=== PATIENT | male | born 1970 | race Caucasian/White ===

== ENCOUNTER 2016-04-24 21:03 | Inpatient (IN) | payer BC ==
[~2016-04-24] VITALS: Ht 175.3 cm; Wt 103.5 kg
[~2016-04-24 21:03] MED LIST: ASPI325T4; ATOR20TA17; CARV3.1238; VALS80TA2
[2016-04-24] MEDS ORDERED: ASPI81TA3 PO (23:58)
[2016-04-24] MEDS ORDERED: OLME1TAB37 PO (23:58)
[2016-04-25] VITALS (13 sets, daily range): BP systolic 101–148; BP diastolic 59–92; PULSE 73–117; RESP 16–20; Ht 175.3 cm; Wt 103.5 kg
[2016-04-25] MEDS ORDERED: ACETAMINOPHEN 325 MG TAB PO PRN (01:00)
[2016-04-25] MEDS ORDERED: DOCUSATE SODIUM 100 MG CAP PO PRN (01:00)
[2016-04-25] MEDS ORDERED: NACL 0.9% 3 ML SYG IV SCH (01:00)
[2016-04-25] MEDS ORDERED: ONDANSETRON 4 MG INJ IV PRN (01:00)
[2016-04-25] MEDS ORDERED: NITROGLYCERIN (SL) 0.4 MG TAB SL PRN (01:00)
[2016-04-25] MEDS ORDERED: morphine 2 MG INJ IV PRN (01:00)
[2016-04-25 01:15] LABS: CREATINE KINASE 126 IU/L (23-200)
[2016-04-25 01:16] LABS: CHOL/HDL RATIO 6.1 RATIO; MAGNESIUM 1.9 mg/dl (1.7-2.5)
[2016-04-25 01:40] LABS: TROPONIN-I < 0.012 ng/ml (0.00-0.12)
[2016-04-25 01:48] LABS: THYROID STIMULATING HORMONE 2.58 MIU/L (0.465-4.680)
--- NOTE | 2016-04-25 02:14 | HP ---
Date/Time of Note Date/Time of Note DATE: 04/25/16 TIME: 02:08 Assessment/Plan VTE Prophylaxis VTE Prophylaxis Intervention: heparin Lines/Catheters IV Catheter Type (from Nrsg): Saline Lock Assessment/Plan Assessment/Plan 45 yo male with a past medical history of hypertension, [place] s/p cath, who presents with chest pain. 1. Chest pain - ACS vs anxiety - will admit the patient to telemetry, consult cardiology, obtain 2D ECHO, aspirin/morphine/nitro/oxygen, continue with coreg/ statin, serial ekgs, TSH/Mag, cycle cardiac markers 2. [place] s/p angiogram - continue with current medications 3. Essential hypertension - on coreg, BP stable 4. GI ppx - protonix po 5. DVT ppx - heparin answered all of his questions. as per clinical course. this history and physical took greater then 45 minutes to complete HPI/ROS Admit Date/Time Admit Date/Time Apr 25, 2016 at 12:30 am Hx of Present Illness 45 yo male with a past medical history of hypertension, [place] s/p cath, who presents with chest pain. He states that over the last month he has had intermittent substernal chest pain, starting from his neck radiating down to his chest, associated with shortness of breath, lasting about 10 minutes at times, not relieved with any medications. The pain is like a burning/pressure sensation, 5/10 in nature, not like his previous acid reflux, but similar to his [place] symptoms 8 years ago. He had initially gone to [facility], but was transferred here to [facility] 05/04 to insurance purposes. He denies any loss of consciousness, headaches, urinary/bowel irregularities, fevers/chills or other constitutional symptoms. [facility]: Xray- no active cardiopulmonary disease Labs reviewed ROS 14 point review of systems completed, please refer to HPI for any positive findings PMH/Family/Social Past Medical History Medical History: coronary artery disease, hypertension Past Surgical History s/p angiogram Family History Significant Family History: heart disease (father had [place] age 69) Social History Alcohol Use: occasionally Smoking Status: Former smoker Drug Use: none Exam/Review of Systems Vital Signs Vitals Vital Signs Date Time Temp Pulse Resp B/P Pulse Ox O2 Delivery O2 Flow Rate FiO2 04/25/16 00:09 98.1 87 16 148/92 97 Exam Exam Gen Mateusz: NAD, AAOx4 HEENT: NC/AT, PERRLA, EOMI, no pharyngeal erythema, no tonsillar exudates, no lymphadenopathy, no JVD, no carotid bruits NECK: supple, no thyromegaly THORAX: symmetrical, no obvious deformities CV: S1S2, RRR, no M/G/R Lungs: CTAB no W/C/R/R Abd: soft, NT/ND, +BS, no rebound, no guarding, neg HSM EXT: no edema, no ecchymosis, no clubbing, FROM Neuro: CN II-XII grossly intact, no focal deficits Psych: good mentation, alert and oriented, good mood and affect Skin: C/D/I Medications Medications Current Medications Lorazepam (Ativan) 0.5 mg Q6H PRN IV ANXIETY; Start 04/25/16 at 01:00 Ondansetron HCl (Zofran Inj) 4 mg Q6H PRN IV NAUSEA AND/OR VOMITING; Start at 01:00 Nitroglycerin (Nitroglycerin (Sl Tab) 0.4 Mg) 1 tab Q5M PRN SL CHEST PAIN; Start 04/25/16 at 01:00 Acetaminophen (Tylenol Tab) 650 mg Q6H PRN PO PAIN LEVEL 1-3 OR FEVER; Start at 01:00 Morphine Sulfate (morphine) 2 mg Q4H PRN IV PAIN LEVEL 7-10; Start 04/25/16 at 01:00 Docusate Sodium (Colace) 100 mg Q12H PRN PO CONSTIPATION; Start 04/25/16 at 01: 00 Pantoprazole (Protonix Tab) 40 mg DAILY@06 PO ; Start 04/25/16 at 06:00 Enoxaparin Sodium (Lovenox) 40 mg DAILY SC ; Start 04/25/16 at 09:00 Aspirin (Aspirin) 81 mg DAILY PO ; Start 04/25/16 at 09:00 Atorvastatin Calcium (Lipitor) 20 mg QHS PO ; Start 04/25/16 at 21:00 Carvedilol (Coreg) 3.125 mg BID PO ; Start 04/25/16 at 09:00 Miscellaneous Information 0.25 tab DAILY PO ; Start 04/25/16 at 09:00; Status ANAM DIEGO MD Apr 25, 2016 02:14
[2016-04-25] MEDS: PANTOPRAZOLE (EC) 40 MG TAB PO SCH (06:01)
[2016-04-25] MEDS: ENOXAPARIN 40 MG/0.4 ML SYG SC SCH (09:00)
[2016-04-25] MEDS: ASPIRIN 81 MG TAB PO SCH (09:19)
[2016-04-25] MEDS ORDERED: [UNRECOGNIZED DRUG - REMARK] XX SCH (12:30)
--- NOTE | 2016-04-25 13:04 | PN ---
Date/Time of Note Date/Time of Note DATE: 04/25/16 TIME: 12:58 Assessment/Plan VTE Prophylaxis VTE Prophylaxis Intervention: heparin Lines/Catheters IV [facility] Saline Lock Urinary Cath still in place: No Assessment/Plan Assessment/Plan 1. Chest pain, r/o ACS, Dr. Shirley for cardiology consult 2. CAD, s/p ?PCI 7 years ago, on aspirin statin 3. Hypertension, stable Subjective 24 Hr Interval Summary Free Text/Dictation no chest pain or shortness of breath now Exam/Review of Systems Vital Signs Vitals Vital Signs Date Time Temp Pulse Resp B/P Pulse Ox O2 Delivery O2 Flow Rate FiO2 04/25/16 12:04 92 04/25/16 11:13 98.6 20 136/80 97 04/25/16 04:24 Room Air Intake and Output 04/24/16 04/24/16 04/25/16 15:00 23:00 07:00 Intake Total 80 ml Balance 80 ml Exam Constitutional: alert, oriented, well developed Psych: nl mood/affect, no complaints Head: atraumatic, normocephalic Eyes: EOMI, PERRL, nl conjunctiva, nl lids, nl sclera ENMT: mucosa pink and moist, nl external ears & nose, nl lips & teeth, nl nasal mucosa & septum Neck: non-tender, supple Respiratory: clear to auscultation, normal air movement, No congested cough, No crackles/rales, No diminished breath sounds, No intercostal retraction, No labored breathing, No respirations, No tactile fremitus, No wheezing Cardiovascular: nl pulses, regular rate and rhythm, No S3, No S4, No bruits, No diastolic murmur, No edema, No gallop, No irregular rhythm, No jugular venous distention (JVD), No murmurs/extra sounds, No rub, No systolic murmur Gastrointestinal: nl liver, spleen, non-tender, soft, No ascites, No bowel sounds, No distended, No firm, No hepatomegaly, No mass , No rebound or guarding, No splenomegaly, No surgical scars, No tender Musculoskeletal: nl extremities to inspection Extremities: normal pulses, No calf tenderness, No clubbing, No cyanosis, No edema, No palpable cord, No pitting pedal edema Neurological: BESSEMER REGULATOR II-XII intact, nl mental status, nl speech, nl strength Skin: nl turgor, rash or lesions Lymph: nl lymph nodes Results Results 24 hrs Laboratory Tests Test 04/25/16 00:55 Cholesterol Level 220 H Cholesterol/HDL Ratio 6.1 Creatine Kinase 126 Creatine Kinase Index 0.5 Creatinine Kinase MB (Mass) 0.60 HDL Cholesterol 36 Hemoglobin A1c 5.7 LDL Cholesterol, Calculated 130 Magnesium Level 1.9 Thyroid Stimulating Hormone (TSH) 2.580 Triglycerides Level 268 H Troponin I < 0.012 Medications Medications Current Medications Lorazepam (Ativan) 0.5 mg Q6H PRN IV ANXIETY; Start 04/25/16 at 01:00 Ondansetron HCl (Zofran Inj) 4 mg Q6H PRN IV NAUSEA AND/OR VOMITING; Start at 01:00 Nitroglycerin (Nitroglycerin (Sl Tab) 0.4 Mg) 1 tab Q5M PRN SL CHEST PAIN; Start 04/25/16 at 01:00 Acetaminophen (Tylenol Tab) 650 mg Q6H PRN PO PAIN LEVEL 1-3 OR FEVER; Start at 01:00 Morphine Sulfate (morphine) 2 mg Q4H PRN IV PAIN LEVEL 7-10; Start 04/25/16 at 01:00 Docusate Sodium (Colace) 100 mg Q12H PRN PO CONSTIPATION; Start 04/25/16 at 01: 00 Pantoprazole (Protonix Tab) 40 mg DAILY@06 PO Last administered on 04/25/16 06 :01; Admin Dose 40 MG; Start 04/25/16 at 06:00 Enoxaparin Sodium (Lovenox) 40 mg DAILY SC ; Start 04/25/16 at 09:00 Aspirin (Aspirin) 81 mg DAILY PO Last administered on 04/25/16 09:19; Admin Dose 81 MG; Start 04/25/16 at 09:00 Atorvastatin Calcium (Lipitor) 20 mg QHS PO ; Start 04/25/16 at 21:00 Carvedilol (Coreg) 3.125 mg BID PO Last administered on 04/25/16 09:20; Admin Dose 3.125 MG; Start 04/25/16 at 09:00 Miscellaneous Information 0.25 tab DAILY XX ; Start 04/25/16 at 09:00; Status UNV Miscellaneous Information 1 ea NOTE XX ; Start 04/25/16 at 12:30 MARISA FOX MD Apr 25, 2016 13:04
--- NOTE | 2016-04-25 13:08 | RADRPT ---
Echocardiogram Report Patient Name: JAE CUETO Gender: Male Date: 1970 Study Date: 25-Apr-2016 Garment Alteration Examiner: Oneida Ni [facility] Location: 507 Ref. Physician: ANAM SANCHEZ Quality: Good Procedures: Transthoracic echocardiogram with complete 2D, M-Mode, and doppler examination. Indications: Chest Pain. 2D/M Mode Doppler Measurement Value Normal Ranges Measurement Value Normal Ranges LVIDd 2D 4.9 3.5 - 5.6 cm AV Peak Martín 1.2 m/sec LVIDs 2D 3.4 2.1 - 4.1 cm AV Peak PG 5.5 mmHg LVPWd 2D 1.1 0.6 - 1.1 cm LVOT Peak Martín 0.9 m/sec IVSd 2D 0.9 0.6 - 1.1 cm LVOT Peak PG 3.0 mmHg AoR Diam 2D 3.0 2.0 - 3.7 cm MV E Peak Martín 0.5 m/sec EDV 2D 114.8 cm3 MV A Peak Martín 0.6 m/sec ESV 2D 40.1 cm3 MV E/A 0.9 LA Dimen 2D 3.9 2.3 - 4.0 cm MV Decel Time 225 msec MV Decel [place] 2 MV E/A 0.9 Findings Left Ventricle: Normal left ventricular systolic function. Normal left ventricular cavity size. Normal left ventricular wall thickness. Ejection fraction is visually estimated at 65 %. Tissue Doppler/Mitral Doppler indices are consistent with impaired relaxation (Stage I diastolic dysfunction). Right Ventricle: Normal right ventricular size. Normal right ventricular systolic function. Left Atrium: The left atrium is normal in size. Right Atrium: The right atrium is normal in size. Mitral Valve: Normal appearance and function of the mitral valve with trace physiologic regurgitation. Aortic Valve: Normal appearance of the aortic valve. No significant aortic stenosis or insufficiency. Tricuspid Valve: Normal appearance and function of the tricuspid valve with trace physiologic regurgitation. Pericardium: Normal pericardium with no significant pericardial effusion. Aorta: Normal aortic root. IVC: Normal size and normal respiratory collapse consistent with normal right atrial pressure. Conclusions 1.Normal left ventricular systolic function. Normal left ventricular cavity size. Normal left ventricular wall thickness. Ejection fraction is visually estimated at 65 %. Tissue Doppler/Mitral Doppler indices are consistent with impaired relaxation (Stage I diastolic dysfunction). 2.Normal appearance and function of the mitral valve with trace physiologic regurgitation. 3.Normal appearance of the aortic valve. No significant aortic stenosis or insufficiency. 4.Normal appearance and function of the tricuspid valve with trace physiologic regurgitation. 5.Normal pericardium with no significant pericardial effusion. Electronically Signed By: Rocío Kan 25-Apr-2016 13:07:07 -0800 Patient Name: JAE CUETO Study Date: 25-Apr-2016 [id number]
[2016-04-25 13:23] LABS: CREATINE KINASE 91 IU/L (23-200)
--- NOTE | 2016-04-25 13:33 | CONS ---
Date/Time of Note Date/Time of Note DATE: 04/25/16 TIME: 13:31 Assessment/Plan Assessment/Plan Additional Assessment/Plan Atypical chest pain hx of cad s/p cath few years back HLP very atypical cehst pain, but will proceed with cardiolyte given his past history normal trops, no ekg changes continue cardiac meds Consultation Date/Type/Reason Admit Date/Time Apr 25, 2016 at 12:30 am Hx of Present Illness 45 yo male with a past medical history of hypertension, [place] s/p cath few years back, who presents with chest pain. He states that over the last month he has had intermittent substernal chest pain, starting from his neck radiating down to his chest, associated with shortness of breath, lasting about 10 minutes at times, not relieved with any medications. The pain is like a burning/pressure sensation, 5/10 in nature, not like his previous acid reflux, but similar to his [place] symptoms 8 years ago. He had initially gone to [facility], but was transferred here to [facility] 05/04 to insurance purposes. He denies any loss of consciousness, headaches, urinary/bowel irregularities, fevers/chills or other constitutional symptoms. He is currently asymptomactic with no true exertional symptoms Psychological: nl mood/affect, no complaints Past Medical History Medical History: coronary artery disease, hypertension Social History Alcohol Use: occasionally Smoking Status: Former smoker Drug Use: none Exam/Review of Systems Vital Signs Vitals Vital Signs Date Time Temp Pulse Resp B/P Pulse Ox O2 Delivery O2 Flow Rate FiO2 04/25/16 12:04 92 04/25/16 11:13 98.6 20 136/80 97 04/25/16 04:24 Room Air Intake and Output 04/24/16 04/24/16 04/25/16 15:00 23:00 07:00 Intake Total 80 ml Balance 80 ml Results Results 24 hrs Laboratory Tests Test 04/25/16 00:55 Cholesterol Level 220 H Cholesterol/HDL Ratio 6.1 Creatine Kinase 126 Creatine Kinase Index 0.5 Creatinine Kinase MB (Mass) 0.60 HDL Cholesterol 36 Hemoglobin A1c 5.7 LDL Cholesterol, Calculated 130 Magnesium Level 1.9 Thyroid Stimulating Hormone (TSH) 2.580 Triglycerides Level 268 H Troponin I < 0.012 Medications Medications Current Medications Lorazepam (Ativan) 0.5 mg Q6H PRN IV ANXIETY; Start 04/25/16 at 01:00 Ondansetron HCl (Zofran Inj) 4 mg Q6H PRN IV NAUSEA AND/OR VOMITING; Start at 01:00 Nitroglycerin (Nitroglycerin (Sl Tab) 0.4 Mg) 1 tab Q5M PRN SL CHEST PAIN; Start 04/25/16 at 01:00 Acetaminophen (Tylenol Tab) 650 mg Q6H PRN PO PAIN LEVEL 1-3 OR FEVER; Start at 01:00 Morphine Sulfate (morphine) 2 mg Q4H PRN IV PAIN LEVEL 7-10; Start 04/25/16 at 01:00 Docusate Sodium (Colace) 100 mg Q12H PRN PO CONSTIPATION; Start 04/25/16 at 01: 00 Pantoprazole (Protonix Tab) 40 mg DAILY@06 PO Last administered on 04/25/16 06 :01; Admin Dose 40 MG; Start 04/25/16 at 06:00 Enoxaparin Sodium (Lovenox) 40 mg DAILY SC ; Start 04/25/16 at 09:00 Aspirin (Aspirin) 81 mg DAILY PO Last administered on 04/25/16 09:19; Admin Dose 81 MG; Start 04/25/16 at 09:00 Atorvastatin Calcium (Lipitor) 20 mg QHS PO ; Start 04/25/16 at 21:00 Carvedilol (Coreg) 3.125 mg BID PO Last administered on 04/25/16 09:20; Admin Dose 3.125 MG; Start 04/25/16 at 09:00 Miscellaneous Information 0.25 tab DAILY XX ; Start 04/25/16 at 09:00; Status UNV Miscellaneous Information 1 ea NOTE XX ; Start 04/25/16 at 12:30 LARISA SINGH MD Apr 25, 2016 13:33
[2016-04-25 13:34] LABS: CK-MB 0.41 ng/ml (0.0-2.4)
[2016-04-25 13:47] LABS: TROPONIN-I < 0.012 ng/ml (0.00-0.12)
[2016-04-25] MEDS: AMLODIPINE 2.5 MG TAB PO SCH (16:12)
[2016-04-25] MEDS: HYDROCHLOROTHIAZIDE 12.5 MG CAP PO SCH (16:13)
[2016-04-25] MEDS: LOSARTAN 50 MG TAB PO SCH (16:13)
[2016-04-25] MEDS: LORAZEPAM 2 MG INJ IV PRN ×2 (16:14→22:36)
[2016-04-25] MEDS ORDERED: ATORVASTATIN 20 MG TAB PO SCH (21:00)
[2016-04-26] VITALS (9 sets, daily range): BP systolic 93–149; BP diastolic 57–89; PULSE 67–101; RESP 16–20
[2016-04-26] MEDS: PANTOPRAZOLE (EC) 40 MG TAB PO SCH (05:23)
[2016-04-26 06:34] LABS: BASOPHIL # 0.1 10^3/ul (0.0-0.1); EOSINOPHILS # 0.4 10^3/ul (0.0-0.5); LYMPHOCYTES # 3.7 10^3/ul (0.8-2.9); MONOCYTE # 0.5 10^3/ul (0.3-0.9)
[2016-04-26 06:36] LABS: POTASSIUM 4.4 mmol/L (3.5-5.1)
[2016-04-26 06:38] LABS: CREATININE 0.85 mg/dl (0.61-1.24)
[2016-04-26 06:39] LABS: CALCIUM 9.4 mg/dl (8.4-10.2)
[2016-04-26 06:40] LABS: CONDITION 1; LH ANALYZER COMMENTS 1
[2016-04-26] MEDS: ASPIRIN 81 MG TAB PO SCH (08:24)
[2016-04-26] MEDS: AMLODIPINE 2.5 MG TAB PO SCH (08:24)
[2016-04-26] MEDS: LOSARTAN 50 MG TAB PO SCH (08:24)
[2016-04-26] MEDS: ENOXAPARIN 40 MG/0.4 ML SYG SC SCH (08:25)
[2016-04-26] MEDS: HYDROCHLOROTHIAZIDE 12.5 MG CAP PO SCH (08:25)
[2016-04-26] MEDS ORDERED: BENAZEPRIL 5 MG TAB PO SCH (09:00)
[2016-04-26 11:44] LABS: BASOPHILS % 0.8 % (0.0-2.0); EOSINOPHILS % 4.8 % (0.0-7.0); HEMATOCRIT 44.4 % (42.0-52.0); HEMOGLOBIN 14.8 g/dl (14.0-18.0); LYMPHOCYTES % 50.2 % (15.0-51.0); MEAN CORPUSCULAR HEMOGLOBIN 31.2 pg (29.0-33.0); MEAN CORPUSCULAR HGB CONC 33.3 g/dl (32.0-37.0); MEAN CORPUSCULAR VOLUME 93.5 fl (82.0-101.0); MEAN PLATELET VOLUME 8.9 fl (7.4-10.4); MONOCYTES % 6.2 % (0.0-11.0); NEUTROPHIL # 2.8 10^3/ul (1.6-7.5); PLATELET COUNT 253 10^3/UL (140-440); RED BLOOD COUNT 4.75 10^6/ul (4.70-6.10); RED CELL DISTRIBUTION WIDTH 13.1 % (11.5-14.5); UNCORRECTED WBC 7.4 10^3/ul (4.8-10.8); WHITE BLOOD COUNT 7.4 10^3/ul (4.8-10.8)
[2016-04-26] MEDS ORDERED: REGADENOSON 0.4 MG/5 ML SYG ONE (12:45)
--- NOTE | 2016-04-26 13:37 | PN ---
Date/Time of Note Date/Time of Note DATE: 04/26/16 TIME: 13:36 Assessment/Plan VTE Prophylaxis VTE Prophylaxis Intervention: SCD's Lines/Catheters IV Catheter Type (from Nrs): Saline Lock Urinary Cath still in place: No Assessment/Plan Chief Complaint/Hosp Course 45 yo male with a past medical history of hypertension, [place] s/p cath few years back, who presents with chest pain. He states that over the last month he has had intermittent substernal chest pain, starting from his neck radiating down to his chest, associated with shortness of breath, lasting about 10 minutes at times, not relieved with any medications. The pain is like a burning/pressure sensation, 5/10 in nature, not like his previous acid reflux, but similar to his [place] symptoms 8 years ago. He had initially gone to [facility], but was transferred here to [facility] 05/04 to insurance purposes. He denies any loss of consciousness, headaches, urinary/bowel irregularities, fevers/chills or other constitutional symptoms. He is currently asymptomactic with no true exertional symptoms Problems: Assessment/Plan Atypical chest pain hx of cad s/p cath few years back HLP hx of RCA stent very atypical cehst pain, but cardiolyte done given his past history normal trops, no ekg changes continue cardiac meds d/c home if cardiolyte normal Subjective 24 Hr Interval Summary Free Text/Dictation the patine twiotn no chestp ain Exam/Review of Systems Vital Signs Vitals Vital Signs Date Time Temp Pulse Resp B/P Pulse Ox O2 Delivery O2 Flow Rate FiO2 04/26/16 12:28 82 04/26/16 11:36 98.2 20 149/89 95 04/25/16 04:24 Room Air Intake and Output 04/25/16 04/25/16 04/26/16 15:00 23:00 07:00 Intake Total 720 ml 240 ml Balance 720 ml 240 ml Results Result Diagram: 04/26/16 0545 04/26/16 0543 Results 24 hrs Laboratory Tests Test 04/26/16 05:43 04/26/16 05:45 Anion Gap 14 Blood Urea Nitrogen 17 Calcium Level 9.4 Carbon Dioxide Level 31 Chloride Level 102 Creatinine 0.85 Glucose Level 104 Potassium Level 4.4 Sodium Level 143 Basophils # 0.1 Basophils % 0.8 Eosinophils # 0.4 Eosinophils % 4.8 Hematocrit 44.4 Hemoglobin 14.8 Lymphocytes # 3.7 H Lymphocytes % 50.2 Mean Corpuscular Hemoglobin 31.2 Mean Corpuscular Hemoglobin Concent 33.3 Mean Corpuscular Volume 93.5 Mean Platelet Volume 8.9 Monocytes # 0.5 Monocytes % 6.2 Neutrophils # 2.8 Neutrophils % 38.0 L Nucleated Red Blood Cells # 0.0 Nucleated Red Blood Cells % 0.0 Platelet Count 253 Red Blood Count 4.75 Red Cell Distribution Width 13.1 White Blood Count 7.4 Medications Medications Current Medications Lorazepam (Ativan) 0.5 mg Q6H PRN IV ANXIETY Last administered on 04/25/16 22: 36; Admin Dose 0.5 MG; Start 04/25/16 at 01:00 Ondansetron HCl (Zofran Inj) 4 mg Q6H PRN IV NAUSEA AND/OR VOMITING; Start at 01:00 Nitroglycerin (Nitroglycerin (Sl Tab) 0.4 Mg) 1 tab Q5M PRN SL CHEST PAIN; Start 04/25/16 at 01:00 Acetaminophen (Tylenol Tab) 650 mg Q6H PRN PO PAIN LEVEL 1-3 OR FEVER; Start at 01:00 Morphine Sulfate (morphine) 2 mg Q4H PRN IV PAIN LEVEL 7-10; Start 04/25/16 at 01:00 Docusate Sodium (Colace) 100 mg Q12H PRN PO CONSTIPATION; Start 04/25/16 at 01: 00 Pantoprazole (Protonix Tab) 40 mg DAILY@06 PO Last administered on 04/26/16 05 :23; Admin Dose 40 MG; Start 04/25/16 at 06:00 Enoxaparin Sodium (Lovenox) 40 mg DAILY SC ; Start 04/25/16 at 09:00 Aspirin (Aspirin) 81 mg DAILY PO Last administered on 04/26/16 08:24; Admin Dose 81 MG; Start 04/25/16 at 09:00 Atorvastatin Calcium (Lipitor) 20 mg QHS PO Last administered on 04/25/16 20: 46; Admin Dose 20 MG; Start 04/25/16 at 21:00 Carvedilol (Coreg) 3.125 mg BID PO Last administered on 04/25/16 20:44; Admin Dose 3.125 MG; Start 04/25/16 at 09:00 Losartan Potassium (Cozaar) 50 mg DAILY PO Last administered on 04/26/16 08:24 ; Admin Dose 50 MG; Start 04/25/16 at 14:15 Amlodipine Besylate (Norvasc) 2.5 mg DAILY PO Last administered on 04/26/16 08 :24; Admin Dose 2.5 MG; Start 04/25/16 at 14:15 Hydrochlorothiazide (Hydrochlorothiazide) 6.25 mg DAILY PO Last administered on 04/26/16 08:25; Admin Dose 6.25 MG; Start 04/25/16 at 14:15 LARISA SINGH MD Apr 26, 2016 13:37
--- NOTE | 2016-04-26 14:02 | CARRPT ---
DATE OF PROCEDURE: [facility] INDICATION: Chest pain, history of RCA stent. FINDINGS: 1. Resting EKG normal sinus rhythm. 2. Normal clinical response. 3. No EKG changes consistent with ischemia. 4. No arrhythmias. 5. Image results are pending. Dictated By: LARISA SINGH MD MS/TREVER Conf#: [id number] DID#: [id number]
--- NOTE | 2016-04-26 14:05 | DS ---
Date/Time of Note Date/Time of Note DATE: 04/26/16 TIME: 14:03 Discharge Summary Admission/Discharge Info Admit Date/Time Apr 24, 2016 at 23:16 Discharge Date/Time Final Diagnosis 1. Chest pain, atypical, negative stress thallium test 2. CAD, s/p ?PCI 7 years ago, on aspirin statin 3. Hypertension, stable Patient Condition: Stable Procedures [place] [address] Radiology Main Line: [phone] DIAGNOSTIC IMAGING REPORT Patient: JAE CUETO : 1970 Age: 45 Sex: M MR #: [id number] DOS: 04/26/16 0000 Ordering MD: LARISA SINGH MD Location: [facility] Room/Bed: [facility] PROCEDURE: Lexiscan myocardial perfusion study CLINICAL INDICATION: 45 -year-old patient complaining of chest pain. TECHNIQUE: Lexiscan 0.4 mg intravenously separate acquisition gated myocardial perfusion SPECT using Tc 99m Myoview 30.9 mCi intravenously at stress and Tc-99m Myoview, 0.8 mCi intravenously at rest was performed using the rest/stress sequence. Poststress Myoview SPECT images were obtained in the supine position. COMPARISON: No prior studies. FINDINGS: Perfusion images reveal no evidence of perfusion defects. Lexiscan post stress gated SPECT images demonstrate no wall motion abnormalities. IMPRESSION: 1. Normal study with no evidence of perfusion defects or wall motion abnormalities. 3. The left ventricle ejection fraction at stress is 57%. A call report was made to Dr. Singh at 03:36 p.m. on April 26, 2016 RPTAT: HH .Yanet Pacheco MD, Date Time Electronically viewed and signed by .Yanet Pacheco MD, on 04/26/2016 15:37 .L/ CC: LARISA SINGH MD Hx of Present Illness 45 yo male with a past medical history of hypertension, [place] s/p cath, who presents with chest pain. He states that over the last month he has had intermittent substernal chest pain, starting from his neck radiating down to his chest, associated with shortness of breath, lasting about 10 minutes at times, not relieved with any medications. The pain is like a burning/pressure sensation, 5/10 in nature, not like his previous acid reflux, but similar to his [place] symptoms 8 years ago. He had initially gone to [facility], but was transferred here to [facility] 05/04 to insurance purposes. He denies any loss of consciousness, headaches, urinary/bowel irregularities, fevers/chills or other constitutional symptoms. [facility]: Xray- no active cardiopulmonary disease Labs reviewed Hospital Course No chest pain after admission. Troponin negative. Stress thallium test is negative Home Meds Reported Medications Nhhqzvoatf-Pzsrmazmup-RWEV (Tribenzor) 40-10-25 Mg Tablet, 0.25 TAB PO DAILY, TAB 04/24/16 Aspirin* (Aspirin* Chew) 81 Mg Tab.chew, 81 MG PO DAILY, TAB.CHEW 04/24/16 Carvedilol* (Coreg*) 3.125 Mg Tablet 10/05/09 Atorvastatin (Lipitor) 20 Mg Tablet 10/05/09 Discontinued Reported Medications Aspirin* (Aspirin*) 325 Mg Tablet 10/05/09 Follow-up Plan follow up with Dr. Singh in 2 weeks PCP one week Pending Labs Laboratory Tests Test 04/26/16 05:43 04/26/16 05:45 Anion Gap 14 (8-16) Blood Urea Nitrogen 17mg/dl (7-20) Calcium Level 9.4mg/dl (8.4-10.2) Carbon Dioxide Level 31mmol/L (21-31) Chloride Level 102mmol/L (97-110) Creatinine 0.85mg/dl (0.61-1.24) Glucose Level 104mg/dl (70-220) Potassium Level 4.4mmol/L (3.5-5.1) Sodium Level 143mmol/L (135-144) Basophils # 0.110^3/ul (0.0-0.1) Basophils % 0.8% (0.0-2.0) Eosinophils # 0.410^3/ul (0.0-0.5) Eosinophils % 4.8% (0.0-7.0) Hematocrit 44.4% (42.0-52.0) Hemoglobin 14.8g/dl (14.0-18.0) Lymphocytes # 3.710^3/ul (0.8-2.9) Lymphocytes % 50.2% (15.0-51.0) Mean Corpuscular Hemoglobin 31.2pg (29.0-33.0) Mean Corpuscular Hemoglobin Concent 33.3g/dl (32.0-37.0) Mean Corpuscular Volume 93.5fl (82.0-101.0) Mean Platelet Volume 8.9fl (7.4-10.4) Monocytes # 0.510^3/ul (0.3-0.9) Monocytes % 6.2% (0.0-11.0) Neutrophils # 2.810^3/ul (1.6-7.5) Neutrophils % 38.0% (39.0-77.0) Nucleated Red Blood Cells # 0.010^3/ul (0.0-0.0) Nucleated Red Blood Cells % 0.0/100WBC (0.0-0.0) Platelet Count 50539^3/UL (140-440) Red Blood Count 4.7510^6/ul (4.70-6.10) Red Cell Distribution Width 13.1% (11.5-14.5) White Blood Count 7.410^3/ul (4.8-10.8) MARISA FOX MD Apr 26, 2016 14:05
--- NOTE | 2016-04-26 15:37 | RADRPT ---
PROCEDURE: Lexiscan myocardial perfusion study CLINICAL INDICATION: 45 -year-old patient complaining of chest pain. TECHNIQUE: Lexiscan 0.4 mg intravenously separate acquisition gated myocardial perfusion SPECT usi ng Tc 99m Myoview 30.9 mCi intravenously at stress and Tc-99m Myoview, 0.8 mCi intravenously at rest was performed using the rest/stress sequence. Poststress Myoview SPECT images were obtained in the supine position. COMPARISON: No prior studies. FINDINGS: Perfusion images reveal no evidence of perfusion defects. Lexiscan post stress gated SPECT images demonstrate no wall motion abnormalities. IMPRESSION: 1. Normal study with no evidence of perfusion defects or wall motion abnormalities. 3. The left ventricle ejection fraction at stress is 57%. A call report was made to Dr. Kan at 03:36 p.m. on April 26, 2016 RPTAT: HH .Yanet Pacheco MD, Date Time Electronically viewed and signed by .Yanet Pacheco MD, on 04/26/2016 15:37 .L/
== END 2016-04-26 16:50 | disposition home or self-care (01) | DRG 313 ==
LOC: TEL 23:16
PROVIDERS: ADMIT Student in an Organized Health Care Education/Training Program; ATTEND Student in an Organized Health Care Education/Training Program
DX: R07.89 Other chest pain (principal); I25.2 Old myocardial infarction; I10 Essential (primary) hypertension; R07.9 Chest pain, unspecified; E78.5 Hyperlipidemia, unspecified; I25.10 Atherosclerotic heart disease of native coronary artery without angina pectoris; Z79.82 Long term (current) use of aspirin
CPT/HCPCS: 78452; 80048; 80061; 82550; 82553; 83036; 83735; 84443; 84484; 85025; 93017; 93306; A9500; A9505; J1650; J2060; J2785